=== PATIENT | female | born 1945 | race Caucasian/White ===

== ENCOUNTER 2022-10-24 10:11 | Outpatient (CLI) | payer MEDICARE, OTHER ==
[~2022-10-24 10:11] MED LIST: CARV6.252 PO
== END 2022-10-24 23:59 | disposition home or self-care (01) ==
LOC: RAD 10:11
PROVIDERS: ATTEND Internal Medicine Cardiovascular Disease
DX: I08.8 Other rheumatic multiple valve diseases (principal); R06.02 Shortness of breath
CPT/HCPCS: 93306